=== PATIENT | female | born 1995 | race Caucasian/White ===

== ENCOUNTER 2016-07-31 20:17 | Emergency (ER) | payer OTHER ==
[2016-07-31 22:10] LABS: BASOPHIL % 0.2 % (0-2); PLATELET COUNT 234 x10^3mcL (130-400)
[2016-07-31 22:11] LABS: RED CELL DISTRIBUTION WIDTH 15.6 % (11.5-14.5)
[2016-07-31 22:30] LABS: microscopic required? NO
[2016-07-31 22:40] LABS: urine erythrocyte NEGATIVE (NEGATIVE)
[2016-08-01 00:19] VITALS: BP 106/69
== END 2016-08-01 00:19 | disposition home or self-care (01) ==
LOC: ED 20:17
PROVIDERS: Emergency Medicine
DX: O20.0 Threatened abortion (principal); Z3A.17 17 weeks gestation of pregnancy
CPT/HCPCS: 36415

== ENCOUNTER 2017-12-19 21:09 | Emergency (ER) | payer OTHER ==
[~2017-12-19] VITALS: Ht 170.2 cm; Wt 99.8 kg
[2017-12-19 21:17] VITALS: Ht 170.2 cm; Wt 99.8 kg
[2017-12-19 21:46] LABS: BASOPHIL % 0.3 % (0-2); PLATELET COUNT 294 x10^3mcL (130-400)
[2017-12-19 22:54] VITALS: BP 144/97
== END 2017-12-19 22:54 | disposition home or self-care (01) ==
LOC: ED 21:09
PROVIDERS: Emergency Medicine
DX: N93.8 Other specified abnormal uterine and vaginal bleeding (principal)

== ENCOUNTER 2018-01-31 02:26 | Emergency (ER) | payer OTHER ==
[~2018-01-31] VITALS: Ht 170.2 cm; Wt 98.9 kg
[2018-01-31 02:37] VITALS: Ht 170.2 cm; Wt 98.9 kg
[2018-01-31 06:06] VITALS: BP 108/70
== END 2018-01-31 06:48 | disposition home or self-care (01) ==
LOC: ED 02:26
DX: R11.10 Vomiting, unspecified (principal); R19.7 Diarrhea, unspecified; Z98.890 Other specified postprocedural states
CPT/HCPCS: Q0162